=== PATIENT | female | born 1950 | race Caucasian/White ===

== ENCOUNTER 2019-05-27 19:57 | Inpatient (IN) | payer SELFPAY ==
--- NOTE | 2019-05-27 21:37 | PDOC ---
History of Present Illness - General Chief Complaint: Injury Stated Complaint: TRAUMATIC INJURY RA Time Seen by Provider: 05/27/19 21:37 History Source: Patient - History of Present Illness Initial Comments: 05/27/19 22:21 Chief complaint: shoulder injury Pt is a 68 year old with no medical hx who has not seen a doctor in 14 years. who injured her right shoulder when she hit it against a door yesterday. Patient complaining of pain to the area. No numbness, no head injury. Patient is ambulatory. GENERAL/CONSTITUTIONAL: No fever, weakness. dizziness HEAD, EYES, EARS, NOSE AND THROAT: No change in vision. No ear pain or discharge. No sore throat. CARDIOVASCULAR: No chest pain RESPIRATORY: No shortness of breath or cough GASTROINTESTINAL: No pain, nausea, vomiting, diarrhea or constipation GENITOURINARY: No dysuria MUSCULOSKELETAL: +Right shoulder pain, no neck or back pain SKIN: No rash NEUROLOGIC: No headache, vertigo, loss of consciousness, or loss of sensation. GENERAL: The patient is awake, alert, and fully oriented, in no acute distress. HEAD: Normal with no signs of trauma. EYES: Pupils equal, round and reactive to light, sclera anicteric, conjunctiva clear. ENT: pharynx: no erythema, no exudate, uvula midline NECK: supple CHEST: clear, nontender, rr ABD: soft, nontender BACK: no tenderness or signs of injury EXTREMITIES: Right shoulder with deformity, unable to lift, large area of ecchymosis to the proximal, mid humeral area, no signs of infection or open wounds. Elbow shows no tenderness or swelling, rest of extremity normal exam, neurovascular intact. Rest of extremities, normal range of motion, no edema. NEUROLOGICAL: Normal speech, normal gait. Cranial nerves II through XII grossly intact, no gross focal abnormalities SKIN: Warm, Dry Past History - Past Medical History Allergies/Adverse Reactions: Allergies Allergy/AdvReac Type Severity Reaction Status Date / Time No Known Allergies Allergy Verified 05/27/19 20:04 COPD: No - Psycho Social/Smoking Cessation Hx Smoking History: Never smoked *Physical Exam - Vital Signs Last Vital Signs Temp Pulse Resp BP Pulse Ox 98.5 F 73 18 139/60 98 05/27/19 20:01 05/27/19 20:01 05/27/19 20:01 05/27/19 20:01 05/27/19 20:01 Procedures - Splinting Sling: Yes Medical Decision Making - Medical Decision Making Patient with right humeral injury, will get x-rays. X-ray shows proximal humeral fracture, likely dislocation, will get better views. 05/27/19 22:25 X-ray shows dislocation, fracture with fragment, will discuss with Ortho, call was placed Discussed with Dr. Burns, patient will need to be admitted, labs, work-up ordered, [employer] OPERATOR Ezequiel Flores will get patient admitted. Will follow labs, EKG and imaging and discuss with Ortho. 05/27/19 22:45 Discharge - Discharge Information Problems reviewed: Yes Clinical Impression/Diagnosis: Fracture dislocation of shoulder joint Qualifiers: Encounter type: initial encounter Fracture type: closed Laterality: right Qualified Code(s): S42.91XA - Fracture of right shoulder girdle, part unspecified, initial encounter for closed fracture - Follow up/Referral - Patient Discharge Instructions - Post Discharge Activity
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
[2019-05-28] MEDS ORDERED: morphine CARPU-JECT 4 MG/1 ML DISP.SYRIN IVPUSH ONE (00:17)
[2019-05-28] MEDS ORDERED: morphine SULFATE 4 MG/ML VIAL ONE (00:46)
[2019-05-28 00:52] LABS: BASO % 0.3 % (0-2.0); EOS % 0.4 % (0-4.5); HEMATOCRIT 40.7 % (32.4-45.2); HEMOGLOBIN 13.9 GM/dL (10.7-15.3); LYMPH % 17.8 % (8-40); MCH 29.8 pg (25.7-33.7); MEAN CELL VOLUME 87.5 fl (80-96); MONO % 10.2 % (3.8-10.2); NEUT % 71.3 % (42.8-82.8); PLATELET COUNT 305 K/MM3 (134-434); RBC 4.65 M/mm3 (3.60-5.2); RDW 13.5 % (11.6-15.6); WHITE BLOOD COUNT 12.2 K/mm3 (4.0-10.0)
[2019-05-28 01:03] LABS: INR 1.01 (0.83-1.09); PROTHROMBIN TIME (PATIENT) 11.9 SEC (9.7-13.0)
[2019-05-28 01:05] LABS: ACTIVATED PTT 30.8 SECONDS (25.2-36.5)
[2019-05-28 01:18] LABS: ALBUMIN 3.7 g/dl (3.4-5.0); BILIRUBIN,TOTAL 0.6 mg/dL (0.2-1); BLOOD UREA NITROGEN 15.7 mg/dL (7-18); CALCIUM 8.6 mg/dL (8.5-10.1); CREATININE 0.8 mg/dL (0.55-1.3); POTASSIUM 3.8 mmol/L (3.5-5.1)
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
[2019-05-28] MEDS ORDERED: SODIUM CHLORIDE 1,000 ML IV SCH ×2 (03:00→13:14)
[2019-05-28] MEDS ORDERED: MORPHINE SULFATE 2 MG/ML VIAL IVPUSH PRN ×2 (03:04→13:14)
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
[2019-05-28] MEDS ORDERED: ACETAMINOPHEN 325 MG TABLET (FP) PO PRN ×4 (03:38→13:18)
[2019-05-28 05:20] VITALS: BMI 26.4
[2019-05-28 08:18] LABS: BASO % 0.3 % (0-2.0); EOS % 0.4 % (0-4.5); HEMATOCRIT 37.3 % (32.4-45.2); HEMOGLOBIN 12.8 GM/dL (10.7-15.3); LYMPH % 19.9 % (8-40); MCH 29.8 pg (25.7-33.7); MCHC 34.3 g/dl (32.0-36.0); MEAN PLT VOLUME 8.8 fl (7.5-11.1); MONO % 9.9 % (3.8-10.2); NEUT % 69.5 % (42.8-82.8); PLATELET COUNT 270 K/MM3 (134-434); RBC 4.29 M/mm3 (3.60-5.2); RDW 13.4 % (11.6-15.6); WHITE BLOOD COUNT 10.3 K/mm3 (4.0-10.0)
[2019-05-28 08:34] LABS: ALBUMIN 3.3 g/dl (3.4-5.0); BILIRUBIN,TOTAL 0.8 mg/dL (0.2-1); BLOOD UREA NITROGEN 18.4 mg/dL (7-18); CALCIUM 8.2 mg/dL (8.5-10.1); CREATININE 0.8 mg/dL (0.55-1.3); POTASSIUM 3.8 mmol/L (3.5-5.1); TOT PROT 7.4 g/dl (6.4-8.2)
--- NOTE | 2019-05-28 10:29 | EKG ---
Test Reason : Blood Pressure : / mmHG Vent. Rate : 070 BPM Atrial Rate : 070 BPM P-R Int : 140 ms QRS Dur : 076 ms QT Int : 406 ms P-R-T Axes : 010 032 009 degrees QTc Int : 438 ms NORMAL SINUS RHYTHM POSSIBLE INFERIOR INFARCT , AGE UNDETERMINED ABNORMAL ECG NO PREVIOUS ECGS AVAILABLE Confirmed by Joseph Ward MD ([id number]) on 05/28/2019 10:28:30 AM Referred By: Confirmed By:Joseph Ward MD
--- NOTE | 2019-05-28 10:40 | PN ---
Physical Exam: SUBJECTIVE: Patient seen and examined. She has some pain in her right upper arm. OBJECTIVE: Vital Signs Period Temp Pulse Resp BP Sys/Galvin Pulse Ox Last 24 Hr 98.5 F-98.7 F 69-76 18-18 139-145/60-73 95-98 GENERAL: The patient is awake, alert, and fully oriented, in no acute distress. LUNGS: Breath sounds equal, clear to auscultation bilaterally, no wheezes, no crackles, no accessory muscle use. HEART: Regular rate and rhythm, S1, S2 without murmur, rub or gallop. ABDOMEN: Soft, nontender, nondistended, normoactive bowel sounds, no guarding, no rebound, no hepatosplenomegaly, no masses. EXTREMITIES: 2+ pulses, warm, well-perfused, no edema. Right arm in sling. Laboratory Results - last 24 hr 05/28/19 05/28/19 05/28/19 00:05 00:05 00:05 WBC 12.2 H RBC 4.65 Hgb 13.9 Hct 40.7 MCV 87.5 MCH 29.8 MCHC 34.0 RDW 13.5 Plt Count 305 MPV 9.0 Absolute Neuts (auto) 8.7 H Neutrophils % 71.3 Lymphocytes % 17.8 Monocytes % 10.2 Eosinophils % 0.4 Basophils % 0.3 Nucleated RBC % 0 PT with INR 11.90 INR 1.01 PTT (Actin FS) 30.8 Sodium 140 Potassium 3.8 Chloride 108 H Carbon Dioxide 26 Anion Gap 7 L BUN 15.7 Creatinine 0.8 Est GFR (CKD-EPI)AfAm 88.42 Est GFR (CKD-EPI)NonAf 76.29 Random Glucose 155 H Hemoglobin A1c % Calcium 8.6 Total Bilirubin 0.6 AST 35 ALT 29 Alkaline Phosphatase 78 Total Protein 8.0 Albumin 3.7 05/28/19 05/28/19 05/28/19 07:00 07:00 07:00 WBC 10.3 H RBC 4.29 Hgb 12.8 Hct 37.3 MCV 87.0 MCH 29.8 MCHC 34.3 RDW 13.4 Plt Count 270 MPV 8.8 Absolute Neuts (auto) 7.2 Neutrophils % 69.5 Lymphocytes % 19.9 Monocytes % 9.9 Eosinophils % 0.4 Basophils % 0.3 Nucleated RBC % 0 PT with INR INR PTT (Actin FS) Sodium 143 Potassium 3.8 Chloride 111 H Carbon Dioxide 26 Anion Gap 6 L BUN 18.4 H Creatinine 0.8 Est GFR (CKD-EPI)AfAm 88.42 Est GFR (CKD-EPI)NonAf 76.29 Random Glucose 145 H Hemoglobin A1c % 6.9 H Calcium 8.2 L Total Bilirubin 0.8 AST 28 ALT 26 Alkaline Phosphatase 71 Total Protein 7.4 Albumin 3.3 L Active Medications Generic Name Dose Route Start Last Admin Trade Name Freq PRN Reason Stop Dose Admin Acetaminophen 650 mg 05/28/19 03:39 Tylenol - PO Q6H PRN PAIN LEVEL 1-5 Sodium Chloride 1,000 mls @ 42 mls/hr 05/28/19 03:00 05/28/19 03:46 Normal Saline - IV 42 mls/hr ASDIR JOHN Administration Morphine Sulfate 1 mg 05/28/19 03:04 Morphine Sulfate IVPUSH Q4H PRN PAIN LEVEL 6-10 ASSESSMENT/PLAN: This is a 68 year old woman with no past medical history who presented to the ED with right arm pain after hitting her right shoulder against a door. 1. Right shoulder dislocation with avulsion fracture of greater tuberosity of right humerus - Maintain RUE sling - Pain control - Keep NPO pending ortho consult 2. Leukocytosis - Improved - No evidence of infection 3. Type 2 DM - HbA1c 6.9 - Monitor fingersticks - Diabetic diet once able to eat - Diabetic education - Weight loss Visit type - Emergency Visit Emergency Visit: Yes ED Registration Date: 05/28/19 Care time: The patient presented to the Emergency Department on the above date and was hospitalized for further evaluation of their emergent condition. - New Patient This patient is new to me today: Yes Date on this admission: 05/28/19 - Critical Care Critical Care patient: No - Discharge Referral Referred to [facility] No
--- NOTE | 2019-05-28 11:07 | CON.ORTH ---
Consult Consult Specialty:: Orthopedics Reason for Consultation:: Right shoulder dislocation - History of Present Illness Chief Complaint: Right shoulder pain History of Present Illness: This is a 68 y/o F with no PMHx who presented to the ED yesterday after her right arm was hit by a closing door causing pain to right shoulder. Patient states she was picking up her granddaughter from school when her arm was hit by the door. XR in the ED showed shoulder dislocation and displaced greater tuberosity fracture. ED attempted reduction as per our recommendation. ED was unsuccessful in reduction. They attempted to contact us but did not reach anyone after reduction was unsuccessful. Patient was admitted with shoulder sling. Patient denies any numbness, tingling to fingers, pain with ROM of elbow, wrist or fingers. She denies any previous injury to this shoulder. - History Source History Provided By: Patient, Medical Record Limitations to Obtaining History: No Limitations - Alcohol/Substance Use Hx Alcohol Use: No - Smoking History Smoking history: Former smoker Have you smoked in the past 12 months: No If you are a former smoker, when did you quit?: 40 years ago Home Medications - Allergies Allergies/Adverse Reactions: Allergies Allergy/AdvReac Type Severity Reaction Status Date / Time No Known Allergies Allergy Verified 05/27/19 20:04 - Home Medications Home Medications: Ambulatory Orders NK [No Known Home Medication] 05/28/19 Review of Systems - Review of Systems Musculoskeletal: reports: Other (Right shoulder pain) Physical Exam for Ortho Vital Signs: Vital Signs Temperature 98.7 F 05/28/19 05:12 Pulse Rate 69 05/28/19 05:12 Respiratory Rate 18 05/28/19 05:37 Blood Pressure 144/68 05/28/19 05:12 O2 Sat by Pulse Oximetry (%) 95 05/28/19 05:37 Labs: CBC, BMP 05/28/19 07:00 05/28/19 07:00 INR, PTT INR 1.01 (0.83-1.09) 05/28/19 00:05 - Upper Extremity Shoulder: Yes: Right (Wearing shoulder sling at time of exam. Diffuse ecchymosis of upper arm. Tenderness to palpation of proximal humerus. Decreased ROM due to injury. NVID. 2+ radial pulse) Imaging - Results X-ray: Report Reviewed, Image Reviewed (2 views of right shoulder show glenohumeral head dislocation with displaced greater tuberosity fracture) Problem List - Problems (1) Fracture dislocation of shoulder joint Code(s): S42.90XA - FRACTURE OF UNSP SHOULDER GIRDLE, PART UNSP, INIT Qualifiers: Encounter type: initial encounter Fracture type: closed Laterality: right Qualified Code(s): S42.91XA - Fracture of right shoulder girdle, part unspecified, initial encounter for closed fracture Assessment/Plan 68 y/o F with no PMHx who presented to the ED yesterday for evaluation of right shoulder pain s/p being hit by a closing door -ED XR shows glenohumeral dislocation with displaced greater tuberosity fracture -Reduction was attempted and unsuccessful in ED. They attempted to contact us but did not reach anyone after reduction was unsuccessful and admitted patient. -She is currently scheduled for reduction in OR today -Procedure was discussed with patient using [employer] bake content writer #[id number] and consent was signed -Discussed and received consent from daughter Yusra over the phone (phone#: [phone]) -Plan for possible ORIF next week as outpatient procedure -Keep NPO -Pain control -Continue shoulder sling
[2019-05-28] MEDS ORDERED: ROPIVACAINE HCL 0.5% 30ML VIAL ONE (12:06)
[2019-05-28] MEDS ORDERED: MIDAZOLAM HCL 2 MG/2 ML SINGLE DOSE VIAL ONE (12:22)
[2019-05-28] MEDS ORDERED: EPHEDRINE SULFATE/0.9% NACL/PF 50 MG/10 ML SYRINGE NR ONE (12:23)
[2019-05-28] MEDS ORDERED: SUCCINYLCHOLINE CHLORIDE 200 MG/10 ML SYRINGE ONE (12:23)
[2019-05-28] MEDS ORDERED: PROPOFOL 20 ML ONE ×2 (12:23)
[2019-05-28] MEDS ORDERED: LIDOCAINE HCL/PF 2% SDV 5ML VIAL ONE (12:32)
[2019-05-28] MEDS ORDERED: ONDANSETRON 4 MG/2 ML VIAL ONE (12:32)
[2019-05-28] MEDS ORDERED: ONDANSETRON 4 MG/2 ML VIAL IVPUSH PRN (13:18)
[2019-05-28] MEDS ORDERED: oxyCODONE HCL 5 MG TABLET PO PRN ×2 (13:18)
[2019-05-28] MEDS ORDERED: LACTATED RINGERS SOLUTION 1,000 ML IV SCH (13:30)
--- NOTE | 2019-05-28 13:45 | CONS ---
DATE OF CONSULTATION: 05/28/2019 PREOPERATIVE DIAGNOSIS: Right glenohumeral fracture dislocation. POSTOPERATIVE DIAGNOSIS: Right glenohumeral fracture dislocation. PROCEDURE: Closed reduction, right shoulder. SURGEON: Lm Kelly MD PLANT INSPECTOR: DILLON Haines ANESTHESIA: General. POSTOPERATIVE CONDITION: Stable. COMPLICATIONS: None. INDICATIONS: This is a pleasant 68-year-old female who a day prior had suffered a fracture dislocation after being hit by a heavy door. She came to the emergency department where she was found to have a fracture dislocation. Reduction was attempted in the ER but was unsuccessful. After being admitted to the floor, she was indicated for closed reduction in the OR. Treatment options including nonsurgical care were discussed, which was not recommended as the shoulder was dislocated and would not relocate on its own, , and permanent loss of function. Recommended a closed reduction attempt, and this would allow for some of the swelling around the shoulder to resolve. We discussed that the most important aspect of her care was a timely closed reduction of the dislocation to help avoid risk of AVN or nerve injury. We discussed that the fracture may be able to be treated closed if it reduces satisfactorily or if it does not reduce satisfactorily could require open reduction internal fixation usually in around a 2-week timeframe to allow for some of the swelling to resolve and the shoulder to be in a more copacetic state. We discussed the option of an open reduction if closed reduction was not successful. I reviewed this with the patient using the [employer] phone and also with the patient's daughter over the phone. All of their questions and concerns were addressed. They voiced understanding and elected to proceed. DESCRIPTION OF PROCEDURE: Patient was brought to the OR where general anesthetic was administered. Utilizing a gentle contraction/counter traction technique, the shoulder was felt to reduce into the glenohumeral joint. Fluoroscopy was used in AP, internal, external oblique views to confirm that the shoulder was concentrically reduced. It was seen that the fracture was persistently displaced indicating that a later ORIF would be required. Patient was placed into a shoulder immobilizer and transferred to recovery room in stable condition. LM KELLY M.D. MEAGHAN/[id number]
[2019-05-28] MEDS ORDERED: ACETAMINOPHEN 325 MG TABLET (FP) ONE ×2 (13:51)
[2019-05-29 10:20] VITALS: BP 131/66; PULSE 62; TEMP 98.7
--- NOTE | 2019-05-29 10:56 | DS ---
Physical Exam: SUBJECTIVE: Patient seen and examined OBJECTIVE: Vital Signs Period Temp Pulse Resp BP Sys/Galvin Pulse Ox Last 24 Hr 98 F-98.8 F 60-70 12-18 112-155/56-79 96-100 PHYSICAL EXAM GENERAL: The patient is awake, alert, and fully oriented, in no acute distress. LUNGS: Breath sounds equal, clear to auscultation bilaterally, no wheezes, no crackles, no accessory muscle use. HEART: Regular rate and rhythm, S1, S2 without murmur, rub or gallop. ABDOMEN: Soft, nontender, nondistended, normoactive bowel sounds, no guarding, no rebound, no hepatosplenomegaly, no masses. EXTREMITIES: 2+ pulses, warm, well-perfused, no edema. Right arm in sling. LABS Laboratory Results - last 24 hr 05/28/19 05/29/19 20:42 06:35 POC Glucometer 139 142 HOSPITAL COURSE: Date of Admission:05/28/19 Date of Discharge: 05/29/19 Discharge Summary Problems reviewed: Yes Reason For Visit: FRACTURE DISLOCATION OF SHOULDER JOINT Current Active Problems Fracture dislocation of shoulder joint (Acute) Hemoglobin A1c less than 7.0% (Acute) Hyperglycemia (Acute) Leukocytosis (Acute) Proximal humerus fracture (Acute) Condition: Stable - Instructions Diet, Activity, Other Instructions: You were admitted to [facility] after coming to the ER on May 26 with right shoulder pain. You were found to have a dislocated shoulder and a fracture of the humerus (upper arm) caused by trauma when a door hit your shoulder. You underwent a procedure in the OR to put the shoulder back in place. You might need surgery to repair the fracture. In the meantime, it is recommended that you keep your right arm in a sling. Please schedule an appointment with the orthopedist, Dr. Lm Alfonso, this week for follow-up and to discuss possible surgery. While in the hospital, your sugar was high. A blood test was done showing that you may have diabetes. No medications were started. Please schedule an appointment to follow-up on this at the [facility] this week. Referrals: [facility] [place] [facility] [Provider Group] - 1 Week Lm Alfonso MD [Staff Physician] - 1 Week Disposition: HOME - Home Medications Comprehensive Discharge Medication List: Ambulatory Orders oxyCODONE HCL [Roxicodone -] 5 mg PO Q4H PRN #10 tablet MDD 6 tabs 05/29/19 - Discharge Referral Referred to [facility] No
--- NOTE | 2019-05-29 12:23 | PN ---
HC Provider Note Provider Note: Anesthesia Post Op Note Pt s/p GA for shoulder decompression Pt denies n/v, no puritis, no urinary retention pain well controlled VSS no anesthesia complications, Juanita Weiss.
== END 2019-05-29 14:30 | disposition home or self-care (01) | DRG 342 ==
LOC: JERFT 19:57 → JERBED 05-28 02:55 → J5S 05-28 04:38
PROVIDERS: ADMIT Internal Medicine; ATTEND Internal Medicine
PROC: 0PSCXZZ Reposition Right Humeral Head, External Approach (ICD-10-PCS; principal; 2019-05-28 11:57)
DX: S42.251A Displaced fracture of greater tuberosity of right humerus, initial encounter for closed fracture (principal); S42.91XA Fracture of right shoulder girdle, part unspecified, initial encounter for closed fracture; X58.XXXA Exposure to other specified factors, initial encounter; Y92.89 Other specified places as the place of occurrence of the external cause; E11.9 Type 2 diabetes mellitus without complications; D72.829 Elevated white blood cell count, unspecified
CPT/HCPCS: 36415; 71046-TC-FY; 73030-TC-RT-FY; 73060-TC-RT-FY; 80053; 82962; 83036; 85025; 85610; 85730; 93005; 93010; 94760; 99285-25; J7030